=== PATIENT | male | born 1980 | race African-American/Black ===

== ENCOUNTER 2020-01-09 12:13 | Emergency (ER) | payer MEDICAID ==
[~2020-01-09] VITALS: Ht 165.1 cm; Wt 75.0 kg
[2020-01-09] MEDS ORDERED: IBUPROFEN 600MG TABLET PO ONE (12:45)
[2020-01-09] MEDS ORDERED: BACITRACIN ZINC OINT UDPKT TOP ONE (12:45)
[2020-01-09 13:14] VITALS: BP 129/89
== END 2020-01-09 13:16 | disposition home or self-care (01) ==
LOC: ER 12:21
DX: L03.011 Cellulitis of right finger (principal); F12.10 Cannabis abuse, uncomplicated
CPT/HCPCS: 10060; 99283

== ENCOUNTER 2020-01-12 07:30 | Emergency (ER) | payer MEDICAID ==
[~2020-01-12] VITALS: Ht 182.9 cm; Wt 79.5 kg
[2020-01-12 09:42] VITALS: BP 122/87
== END 2020-01-12 09:45 | disposition home or self-care (01) ==
LOC: ER 07:30
DX: L03.011 Cellulitis of right finger (principal)
CPT/HCPCS: 10060; 99283

== ENCOUNTER 2020-07-29 00:48 | Emergency (ER) | payer MEDICAID ==
[~2020-07-29] VITALS: Ht 182.9 cm; Wt 82.0 kg
[2020-07-29] MEDS ORDERED: SODIUM CHLORIDE 0.9% 1,000 ML IV ONE (01:30)
[2020-07-29 01:35] LABS: BASOPHILS % 0.4 % (0.0-2.0); EOSINOPHILS % 2.1 % (0.0-5.0); HEMATOCRIT. 44.6 % (42.0-52.0); HEMOGLOBIN. 15.5 g/dL (14.0-18.0); LYMPHOCYTES % 48.9 % (20.0-50.0); MEAN CORPUSCULAR VOLUME 86.5 fL (80.0-94.0); MEAN PLATELET VOLUME 9.6 fl (7.4-10.4); MONOCYTES % 5.5 % (2.0-8.0); NEUTROPHILS % 43.1 % (40.0-76.0); PLATELET 162 x1000/uL (130-400); RED BLOOD CELL COUNT 5.16 mill/uL (4.7-6.1); RED CELL DISTRIBUTION WIDTH 12.8 % (11.6-14.6)
[2020-07-29 01:43] LABS: CHLORIDE 108 mEq/L (98-107)
[2020-07-29 02:40] LABS: D-DIMER < 0.19 mg/L FEU (<0.50); INR 0.9; PROTHROMBIN TIME 9.9 sec (9.6-11.0)
[2020-07-29] MEDS ORDERED: IOHEXOL-350 100 ML BOTTLE ONE (02:56)
[2020-07-29 03:06] VITALS: BP 148/93
== END 2020-07-29 04:03 | disposition home or self-care (01) ==
LOC: ER 00:48
DX: U07.1 COVID-19 (principal); R03.0 Elevated blood-pressure reading, without diagnosis of hypertension
CPT/HCPCS: 36415; 71045; 71275; 80053; 83605; 83880; 84145; 84484; 85025; 85379; 85610; 87040; 93005; 96360; 99285; C9803; J7030; Q9967; U0003

== ENCOUNTER 2020-11-25 14:03 | Emergency (ER) | payer MEDICAID ==
[~2020-11-25] VITALS: Ht 182.9 cm; Wt 81.0 kg
[2020-11-25 14:05] VITALS: BP 143/99
[2020-11-25] MEDS ORDERED: AMOX1TAB16 MT (15:12)
[2020-11-25] MEDS ORDERED: TRAM50TA94 MT (15:12)
== END 2020-11-25 15:37 | disposition home or self-care (01) ==
LOC: ER 14:03
DX: K08.89 Other specified disorders of teeth and supporting structures (principal); Z98.818 Other dental procedure status; R03.0 Elevated blood-pressure reading, without diagnosis of hypertension
CPT/HCPCS: 99283

== ENCOUNTER 2021-06-07 12:29 | Emergency (ER) | payer MEDICAID, OTHER ==
[~2021-06-07] VITALS: Ht 182.9 cm; Wt 82.0 kg
[~2021-06-07 12:29] MED LIST: AMOX1TAB16 MT; TRAM50TA94 MT
[2021-06-07] MEDS ORDERED: IBUPROFEN 600MG TABLET PO STA (12:59)
[2021-06-07 13:22] LABS: BASOPHILS % 0.4 % (0.0-2.0); EOSINOPHILS % 5.3 % (0.0-5.0); HEMOGLOBIN. 14.3 g/dL (14.0-18.0); LYMPHOCYTES % 38.4 % (20.0-50.0); MEAN CORPUSCULAR HEMOGLOBIN 27.5 pg (28.0-32.0); MEAN CORPUSCULAR VOLUME 84.7 fL (80.0-94.0); MEAN PLATELET VOLUME 8.9 fl (7.4-10.4); MONOCYTES % 6.9 % (2.0-8.0); PLATELET 175 x1000/uL (130-400); RED BLOOD CELL COUNT 5.19 mill/uL (4.7-6.1); RED CELL DISTRIBUTION WIDTH 13.8 % (11.6-14.6)
[2021-06-07 13:29] LABS: CHLORIDE 110 mEq/L (98-107)
[2021-06-07 14:11] VITALS: BP 143/64
== END 2021-06-07 14:25 | disposition home or self-care (01) ==
LOC: ER 12:29
DX: R07.89 Other chest pain (principal); F17.200 Nicotine dependence, unspecified, uncomplicated
CPT/HCPCS: 36415; 71045; 80053; 84484; 85025; 85379; 93005; 99285

== ENCOUNTER 2022-12-21 15:54 | Emergency (ER) | payer MEDICAID ==
[~2022-12-21] VITALS: Ht 175.3 cm; Wt 80.0 kg
[2022-12-21 16:03] VITALS: O2SAT 99
[2022-12-21] MEDS ORDERED: LIDOCAINE 5% PATCH TOP SCH (17:15)
[2022-12-21] MEDS ORDERED: KETOROLAC 30MG/ML VIAL IM ONE (17:15)
[2022-12-21] MEDS ORDERED: ACETAMINOPHEN 325MG TABLET PO ONE (17:15)
[2022-12-21] MEDS ORDERED: NAPR-681 MT (18:28)
[2022-12-21] MEDS ORDERED: LIDO700A15 TP (18:28)
[2022-12-21] MEDS ORDERED: BACITRACIN ZINC OINT UDPKT TOP ONE (18:30)
[2022-12-21] MEDS ORDERED: CYCL5TAB MT (18:35)
[2022-12-21] MEDS ORDERED: BO1 TP (18:35)
[2022-12-21 19:08] VITALS: BP 133/98; PULSE 82; RESP 18; TEMP 98.7
== END 2022-12-21 19:21 | disposition home or self-care (01) ==
LOC: ER 15:54
DX: M25.562 Pain in left knee (principal); M25.561 Pain in right knee; M54.2 Cervicalgia; V49.9XXA Car occupant (driver) (passenger) injured in unspecified traffic accident, initial encounter; Y93.89 Activity, other specified; Y92.89 Other specified places as the place of occurrence of the external cause; Y99.8 Other external cause status
CPT/HCPCS: 99284; 73030; 73560; 96372; J1885

== ENCOUNTER 2023-02-07 18:48 | Emergency (ER) | payer MEDICAID, OTHER ==
[~2023-02-07] VITALS: Ht 182.9 cm; Wt 81.0 kg
[~2023-02-07 18:48] MED LIST changes: +BO1 TP; +CYCL5TAB MT; +LIDO700A15 TP; +NAPR-681 MT
[2023-02-07 18:53] VITALS: TEMP 98.5; O2SAT 98
[2023-02-07] MEDS ORDERED: IBUPROFEN 600MG TABLET PO ONE (19:15)
[2023-02-07] MEDS ORDERED: NAPR-1129 MT (20:59)
[2023-02-07 21:26] VITALS: BP 144/102; PULSE 107; RESP 18
== END 2023-02-07 21:27 | disposition home or self-care (01) ==
LOC: ER 18:48
DX: M79.89 Other specified soft tissue disorders (principal)
CPT/HCPCS: 73590; 93971; 99284